=== PATIENT | female | born 2000 | race Caucasian/White ===

== ENCOUNTER 2021-10-11 17:41 | Emergency (ER) | payer OTHER ==
[~2021-10-11] VITALS: Ht 152.4 cm; Wt 73.0 kg
[~2021-10-11 17:41] MED LIST: PARAFON FORTE500 MG PO
[2021-10-11] MEDS ORDERED: AMOX CLAV (18:10)
[2021-10-11] MEDS ORDERED: CLOTRIMAZOLE (18:11)
== END 2021-10-11 21:12 | disposition home or self-care (01) ==
LOC: ER 17:41
DX: T63.301A Toxic effect of unspecified spider venom, accidental (unintentional), initial encounter (principal); Y92.9 Unspecified place or not applicable

== ENCOUNTER 2021-10-13 13:29 | Inpatient (IN) | payer OTHER ==
[~2021-10-13] VITALS: Ht 152.4 cm; Wt 72.6 kg
[~2021-10-13 13:29] MED LIST changes: +AMOX CLAV; +CLOTRIMAZOLE
[2021-10-13] MEDS ORDERED: AMOXICILLIN875 MG PO (13:49)
[2021-10-13] MEDS ORDERED: HYDROXYZIN10 MG/5 ML (13:50)
[2021-10-13] MEDS ORDERED: MORGIDOX100 MG PO (13:50)
--- NOTE | 2021-10-13 13:50 | NUR ---
SE RECIBE PTE ALERTA Y ORIENTADA X3,REFIERE QUE EL [address] DE LA SAIDA RONNY ALLEN EN LA MANO,HOMBRO ,CEFALEA, PALPITACIONES,TUVO FIEBRE,MAREOS, IZQUIERDA PRESION EN EL PECHOEL AREA DE LA PICADA LE COLBY CRECIDO,TAMI TENIA RASH REFIERE TENER DOLOR EN LA MANO Y PICOR SE SIENTE FATIGADA,REFIERE TENER LA TRACI CALIENTE.
--- NOTE | 2021-10-13 17:04 | NUR ---
DR DUKES EVALUA A PTE QUIEN [place] MEDICO. SE ORIENTA A PTE SOBRE EL MISMO Y REFIERE ENTDNER. SE REALUZAN MUESTRAS DE LABORATORIO Y ADMINISTRACION DE MEDDICAMENTOS EVELIA ORDEN MEDICA BAJO MEDIDAS ASEPTICAS. SE COLOCA TERAPIA DE IVF'S Y SE COLOCA EN PASILLO PARA CONTINUIDAD DEL MISMO.
--- NOTE | 2021-10-13 19:33 | NUR ---
ORDENA MEDICAMENTO Y MUESTRA DE U/A, SE LE ENTREGA ENVASE A PTE Y SE ADMINISTRAN MEDICAMENTOS EVELIA ORDEN MEDICA BAJO MEDIDAS ASEPTICAS.
--- NOTE | 2021-10-13 21:18 | NUR ---
PTE CONSULTADA CON DR GRECO.
[2021-10-17] MEDS ORDERED: FLONASE16 GM (15:11)
== END 2021-10-21 16:53 | disposition home or self-care (01) | DRG 607 ==
LOC: ER 13:29 → MEDJ 10-14 00:08 → SURG 10-14 00:08 → SEC-K 10-14 00:08 → SURG 10-14 09:40 → MEDJ 10-16 17:10
PROVIDERS: Surgery; ADMIT Internal Medicine; ATTEND Internal Medicine
PROC: 4A12X4Z Monitoring of Cardiac Electrical Activity, External Approach (ICD-10-PCS; 2021-10-14)
PROC: 0HBEXZZ Excision of Left Lower Arm Skin, External Approach (ICD-10-PCS; principal; 2021-10-20 14:45)
DX: S60.862A Insect bite (nonvenomous) of left wrist, initial encounter (principal); L03.114 Cellulitis of left upper limb; B35.9 Dermatophytosis, unspecified; R00.1 Bradycardia, unspecified; B42.89 Other forms of sporotrichosis; Z20.822 Contact with and (suspected) exposure to COVID-19

== ENCOUNTER 2022-08-22 12:28 | Emergency (ER) | payer OTHER ==
[~2022-08-22] VITALS: Ht 154.9 cm; Wt 76.7 kg
[~2022-08-22 12:28] MED LIST changes: +AMOXICILLIN875 MG PO; +FLONASE16 GM; +HYDROXYZIN10 MG/5 ML; +MORGIDOX100 MG PO
[2022-08-22] MEDS ORDERED: CIPRO500 MG PO (21:54)
[2022-08-22] MEDS ORDERED: PEPCID AC20 MG PO (21:54)
[2022-08-22] MEDS ORDERED: ONDANSETRON ODT8 MG PO (21:55)
[2022-08-22] MEDS ORDERED: LEVSIN/SL0.125 MG SL (21:55)
== END 2022-08-22 22:15 | disposition home or self-care (01) ==
LOC: ER 12:28
DX: K52.9 Noninfective gastroenteritis and colitis, unspecified (principal); R11.2 Nausea with vomiting, unspecified